=== PATIENT | female | born 1960 | race Caucasian/White ===

== ENCOUNTER → 2016-12-21 | Outpatient (CLI) | payer MEDICARE, OTHER | LOC: MAMO 13:57 | DX: N64.4 Mastodynia (principal); N63 Unspecified lump in breast | CPT/HCPCS: 76642-LT; G0204 ==

== ENCOUNTER → 2017-03-25 | Outpatient (CLI) | payer MEDICARE | LOC: US 12:54 | DX: N64.4 Mastodynia (principal); R92.8 Other abnormal and inconclusive findings on diagnostic imaging of breast | CPT/HCPCS: 76641-LT ==

== ENCOUNTER 2020-07-09 14:18 | Emergency (ER) | payer MEDICARE, OTHER ==
[2020-07-09 15:36] LABS: HEMOGLOBIN 14.9 gm/dl (12.3-15.3); RED BLOOD COUNT 4.97 M/UL (4.00-5.10); WHITE BLOOD COUNT 5.1 K/UL (4.5-11.0)
[2020-07-09 15:55] LABS: BUN/CREATININE RATIO 23 (0-10)
== END 2020-07-09 19:58 | disposition home or self-care (01) ==
LOC: ER1 14:18
PROVIDERS: Emergency Medicine
DX: U07.1 COVID-19 (principal); I44.0 Atrioventricular block, first degree; I25.2 Old myocardial infarction; I10 Essential (primary) hypertension; Z98.890 Other specified postprocedural states
CPT/HCPCS: 71045; 80053; 81001; 82550; 82553; 82803; 83605; 83690; 83735; 83874; 83880; 84100; 84484; 85025; 85610; 85730; 87040; 87077; 87086; 87186; 93005; 99285; M0239

== ENCOUNTER → 2020-07-19 | Outpatient (CLI) | payer MEDICARE, OTHER | LOC: CT 14:30 | DX: U07.1 COVID-19 (principal); J12.82 Pneumonia due to coronavirus disease 2019; R79.89 Other specified abnormal findings of blood chemistry | CPT/HCPCS: Q9967 ==

== ENCOUNTER → 2020-07-19 | Outpatient (CLI) | payer MEDICARE ==
[2020-07-19 13:02] LABS: RED BLOOD COUNT 4.36 M/UL (4.00-5.10); WHITE BLOOD COUNT 8.1 K/UL (4.5-11.0)
[2020-07-19 13:17] LABS: BUN/CREATININE RATIO 20 (0-10)
== END ==
LOC: LAB 12:16
PROVIDERS: Nurse Practitioner Family
DX: U07.1 COVID-19 (principal)
CPT/HCPCS: 36415; 71046; 80048; 85025; 85379

== ENCOUNTER → 2020-09-17 | Outpatient (CLI) | payer MEDICARE, OTHER | LOC: RAD 11:22 | DX: M25.512 Pain in left shoulder (principal); M19.012 Primary osteoarthritis, left shoulder | CPT/HCPCS: 73030 ==

== ENCOUNTER 2021-05-18 13:47 | Emergency (ER) | payer MEDICARE ==
[2021-05-18 16:14] LABS: HEMOGLOBIN 14.2 gm/dl (12.3-15.3); RED BLOOD COUNT 4.56 M/UL (4.00-5.10)
[2021-05-18 16:51] LABS: BUN/CREATININE RATIO 17 (0-10)
[2021-05-18] MEDS ORDERED: MOBIC15 MG PO (20:07)
[2021-05-18] MEDS ORDERED: METRONIDAZOLE500 MG PO (20:07)
[2021-05-18] MEDS ORDERED: CIPRO500 MG PO (20:07)
[2021-05-18] MEDS ORDERED: PHENERGAN 25 MG25 M1 PO (20:07)
[2021-05-18] MEDS ORDERED: AUGMENTIN 875-1 EACH PO (20:15)
[2021-05-18] MEDS ORDERED: MACROBID 100 M100 M1 PO (20:15)
== END 2021-05-18 20:50 | disposition home or self-care (01) ==
LOC: ER1 13:47
PROVIDERS: Physician Assistant
DX: N30.00 Acute cystitis without hematuria (principal); K57.90 Diverticulosis of intestine, part unspecified, without perforation or abscess without bleeding; I25.2 Old myocardial infarction; E78.5 Hyperlipidemia, unspecified; Z90.49 Acquired absence of other specified parts of digestive tract; Z90.710 Acquired absence of both cervix and uterus
CPT/HCPCS: 80053; 81001; 85025; 87077; 87086; 87186; 96374; 96375; 96376; 99284; J0696; J1885; J2270; J2405; J2550

== ENCOUNTER → 2021-05-27 | Outpatient (CLI) | payer MEDICARE ==
[~2021-05-27] MED LIST: AUGMENTIN 875-1 EACH PO; CIPRO500 MG PO; MACROBID 100 M100 M1 PO; METRONIDAZOLE500 MG PO; MOBIC15 MG PO; PHENERGAN 25 MG25 M1 PO
[2021-05-27 15:38] LABS: HEMOGLOBIN 12.8 gm/dl (12.3-15.3); RED BLOOD COUNT 4.16 M/UL (4.00-5.10); WHITE BLOOD COUNT 9.7 K/UL (4.5-11.0)
[2021-05-27 15:53] LABS: BUN/CREATININE RATIO 26 (0-10)
== END ==
LOC: LAB 15:03
PROVIDERS: Physician Assistant
DX: R19.7 Diarrhea, unspecified (principal)
CPT/HCPCS: 36415; 80048; 82270; 85025; 87045; 87046; 87449

== ENCOUNTER → 2021-07-16 | Outpatient (CLI) | payer MEDICARE ==
[2021-07-16 15:58] LABS: BORDETELLA PARAPERTUSSIS Not Detected (Not Detectd); BORDETELLA PERTUSSIS Not Detected (Not Detectd); CHLAMYDIA PNEUMONIAE Not Detected (Not Detectd); CORONAVIRUS HKU1 Not Detected (Not Detectd); CORONAVIRUS NL63 Not Detected (Not Detectd); CORONAVIRUS OC43 Not Detected (Not Detectd); CORONOAVIRUS 229E Not Detected (Not Detectd); HUMAN RHINOVIRUS/ENTEROVIRUS Not Detected (Not Detectd); INFLUENZA A Not Detected (Not Detectd); INFLUENZA B Not Detected (Not Detectd); MYCOPLASMA PNEUMONIAE Not Detected (Not Detectd); PARAINFLUENZA VIRUS 1 Not Detected (Not Detectd); PARAINFLUENZA VIRUS 2 Not Detected (Not Detectd); PARAINFLUENZA VIRUS 3 Not Detected (Not Detectd); PARAINFLUENZA VIRUS 4 Not Detected (Not Detectd); RESPIRATORY SYNCYTIAL VIRUS Not Detected (Not Detectd)
[2021-07-16 17:03] LABS: HUMAN METAPNEUMOVIRUS DETECTED (Not Detectd); SARS-CoV-2 NOT DETECTED (Not Detectd)
== END ==
LOC: LAB 15:41
PROVIDERS: Nurse Practitioner Family
DX: R05.9 Cough, unspecified (principal); B34.9 Viral infection, unspecified; Z20.822 Contact with and (suspected) exposure to COVID-19
CPT/HCPCS: 87633

== ENCOUNTER → 2021-11-10 | Outpatient (CLI) | payer MEDICARE ==
[2021-11-10 13:38] LABS: HEMOGLOBIN 14.8 gm/dl (12.3-15.3); RED BLOOD COUNT 4.8 M/UL (4.00-5.10); WHITE BLOOD COUNT 10.2 K/UL (4.5-11.0)
[2021-11-10 13:58] LABS: BUN/CREATININE RATIO 25 (0-10)
== END ==
LOC: CT 13:00
PROVIDERS: Nurse Practitioner Family
DX: R10.32 Left lower quadrant pain (principal); R10.829 Rebound abdominal tenderness, unspecified site; K52.9 Noninfective gastroenteritis and colitis, unspecified
CPT/HCPCS: 36415; 80053; 85025; Q9967